=== PATIENT | female | born 1970 | race Caucasian/White ===

== ENCOUNTER → 2017-11-27 | Outpatient (REF) | payer BC ==
[~2017-11-27] MED LIST: CYC10 PO; META800T18 PO; OXYC-865 PO; PER PO; SIMV10TA98 PO; VENL50TA22 PO
== END ==
LOC: ZZSENDIN 18:37
PROVIDERS: ATTEND Urology
DX: N39.0 Urinary tract infection, site not specified (principal); R82.79 Other abnormal findings on microbiological examination of urine
CPT/HCPCS: 87088

== ENCOUNTER → 2017-12-12 | Outpatient (CLI) | payer BC ==
[~2017-12-12] MED LIST changes: +ATOR10TA24 PO; +NORG1TAB74 PO; +VENL75TA98 PO
== END ==
LOC: LAB 16:11
PROVIDERS: ATTEND Obstetrics & Gynecology
DX: N92.6 Irregular menstruation, unspecified (principal)
CPT/HCPCS: 88305

== ENCOUNTER 2018-01-10 03:27 | Day surgery (SDC) | payer BC ==
[~2018-01-10] VITALS: Ht 170.2 cm; Wt 93.9 kg
[~2018-01-10 03:27] MED LIST changes: +CHOL10005 PO; +[UNRECOGNIZED DRUG - CODE] PO
[2018-01-10] MEDS ORDERED: fentaNYL CITR 100 MCG/2 ML AMP ONE (07:35)
[2018-01-10] MEDS ORDERED: LIDOCAINE 2% IV 100 MG/5ML SYR ONE (07:37)
[2018-01-10] MEDS ORDERED: PROPOFOL EMUL(*) 10MG/ML 20 ML 20 ML ONE (07:37)
[2018-01-10 07:41] LABS: PLATELET COUNT, AUTOMATED 345 K/uL (150-450)
[2018-01-10 07:48] VITALS: BP 136/75
[2018-01-10] MEDS ORDERED: ceFAZolin(*) 1 GM VIAL 1 GM in NS(*) 0.9% 100 ML ADDVANT BAG 100 ML IVPB ONE (07:50)
[2018-01-10] MEDS ORDERED: LIDOCAINE/SOD BICARB 8.4% SYR ID ONE (07:50)
[2018-01-10] MEDS ORDERED: NORMOSOL R SOLN(*) 1000 ML BAG 1,000 ML IV PRN (07:50)
[2018-01-10] MEDS ORDERED: MIDAZOLAM 2 MG/2 ML VIAL IVP PRN (07:50)
[2018-01-10] MEDS ORDERED: FAMOTIDINE 20 MG TAB PO ONE (07:50)
[2018-01-10] MEDS ORDERED: ONDANSETRON 4 MG/2 ML VIAL ONE (08:48)
[2018-01-10] MEDS ORDERED: KETOROLAC 30 MG/ML VIAL ONE (08:48)
[2018-01-10] MEDS ORDERED: DEXAMETHASONE SOD 4 MG/ML VIAL ONE (08:48)
[2018-01-10] MEDS ORDERED: LR(*) 1000 ML BAG 1,000 ML IV ONE (09:17)
[2018-01-10] MEDS ORDERED: IBUP800T37 PO (09:18)
[2018-01-10] MEDS ORDERED: LOR5/325 PO (09:18)
[2018-01-10] MEDS ORDERED: METOCLOPRAMIDE 10 MG/2 ML SDV IVP PRN (09:20)
--- NOTE | 2018-01-10 09:20 | Short(Outpt) Discharge Summary ---
Discharge Summary Reason for Hosp/Final Diag: (1) Status post endometrial ablation Departure Discharge to: Home, Self Care Discharge Instructions Home Meds Active Scripts Hydrocodone Bit/Acetaminophen (HYDROCODON-ACETAMINOPHEN 5-325) 1 Each Tablet, 1 EACH PO Q4-6H PRN for pain, #10 TAB 0 Refills Prov:HUMBERTO JOHNSON MD 01/10/18 Reported Medications Ferrous Sulfate (FERROUSUL) 325 Mg Tablet, 65 MG PO BID 12/27/17 Cholecalciferol (Vitamin D3) (VITAMIN D3) 1,000 Unit Tablet, 1000 UNIT PO DAILY, TAB 12/27/17 Norgestimate-Ethinyl Estradiol (SPRINTEC) 1 Each Tablet, 1 TAB PO QDAY 12/02/17 Atorvastatin Calcium (LIPITOR) 10 Mg Tablet, 1 TAB PO QDAY, TAB 12/02/17 Venlafaxine Hcl (VENLAFAXINE HCL ER) 75 Mg Tab.er.24, 1 TAB PO QDAY 12/02/17 Follow up 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
--- NOTE | 2018-01-10 09:36 | Post Operative Note ---
Operative Note - [employer] Operative Day Date: Jan 10, 2018 Time: 09:35 Physicians Surgeon: Lenka Anesthesia: General, Epstein Diagnosis Pre-Op Diagnosis: Endometrial lesion Menorrhagia Post-Op Diagnosis: Submucosal fibroid Menorrhagia Procedure Findings: Submucosal fibroid in right fundal aspect of endometrium Procedure(s): Hscope myomectomy NovaSure ablation Specimen Removed:(Maybe N/A): Endometrial fibroid and curettings Complications: None Fluids Fluids: IVF: 600cc UOP: 10cc Estimated Blood Loss: Minimal HUMBERTO JOHNSON MD Jan 10, 2018 09:36
--- NOTE | 2018-01-10 10:17 | OPERATIVE REPORT 1 ---
EVENT DATE: January 10, 2018 SURGEON: Bharti Og MD ANESTHESIOLOGIST: Daryl Epstein M.D. ANESTHESIA: General. PREOPERATIVE DIAGNOSIS 1. Endometrial lesion. 2. Menorrhagia. POSTOPERATIVE DIAGNOSIS 1. Submucosal fibroid. 2. Menorrhagia. FINDINGS A small submucosal fibroid in the right fundal aspect of the endometrium. PROCEDURE PERFORMED 1. Hysteroscopic myomectomy. 2. NovaSure endometrial ablation. SPECIMENS Endometrial fibroid and curettings. COMPLICATIONS None. IV FLUIDS 600 cc. URINE OUTPUT 10 cc. ESTIMATED BLOOD LOSS Minimal. INDICATIONS FOR PROCEDURE This patient is a 47-year-old, G2, P2 who presents initially with heavy and irregular bleeding. She was started on Sprintec, which did help her heavy bleeding somewhat but she continued to have irregular and heavy bleeding. She had a pelvic MRI, which showed a 1 cm lesion at the top of endometrium. This was confirmed with ultrasound. She had an endometrial biopsy, which was benign. After discussing her options, she did elect to proceed with hysteroscopic removal of this uterine endometrial lesion as well as NovaSure endometrial ablation. She is, therefore, admitted for the above said procedure. DESCRIPTION OF PROCEDURE The patient is properly identified and taken to the operating room. She is placed under general anesthesia and then placed in the dorsal lithotomy position and prepped and draped in the usual fashion for a vaginal procedure. SCDs were on and running. She did receive Ancef preoperatively for prophylactic antibiotics. Her bladder was drained of 10 cc of clear yellow urine. A speculum was then placed to visualize the cervix, which was noted to be multiparous and without lesion. The anterior lip was grasped with an Allis clamp, placed on traction and then os finder was utilized to enter the endometrial cavity. The cervix was serially dilated to 5 mm with Salina dilators without difficulty. A diagnostic hysteroscope was then introduced under direct visualization. The small submucosal fibroid was visualized at the right fundal aspect of the endometrium. Otherwise, there was abundant endometrial tissue but nothing concerning in appearance. The MyoSure LITE device was then assembled and introduced under direct visualization. This device was then utilized to perform a myomectomy without difficulty followed by curettings of the entire endometrial cavity until the cavity was clear. Once this was achieved, the hysteroscope was removed and a NovaSure endometrial ablation device was assembled. The uterine cavity length was measured to be 7 cm. Therefore, the NovaSure device was set to a cavity length of 6.5+. The device was then introduced within the endometrial cavity and the array was deployed with manipulation. The cavity length was 3.1 cm. These measurements were placed into the machine and the power was calculated. Cavity assessment was then performed and passed. Once this was achieved, the radiofrequency ablation was initiated and a total burn time of 99 seconds was achieved. At the end of this, the array was retracted and removed from the uterus. The hysteroscope was again introduced under direct visualization and adequate burn throughout the entire endometrium was noted. There was a very small amount of normal appearing tissue at the left tubal ostial insertion site but otherwise it was an adequate burn. The hysteroscope was then removed as well as the Allis clamp. There was no bleeding of the cervix at that time and the speculum was removed. The patient tolerated the procedure well and recovered in the Post-Anesthesia Care Unit [facility]
[2018-01-10 10:23] VITALS: BP 113/64
[2018-01-10 10:42] VITALS: BP 115/67
[2018-01-10] MEDS ORDERED: ACETAMINOPHEN 500 MG TAB PO ONE (11:00)
[2018-01-10 11:13] VITALS: BP 128/74
[2018-01-10 11:14] VITALS: BP 139/69
[2018-01-10] MEDS ORDERED: IBUPROFEN 800 MG TAB PO SCH (17:00)
== END 2018-01-10 10:24 | disposition home or self-care (01) ==
LOC: OR 03:27
PROVIDERS: ATTEND Obstetrics & Gynecology
DX: D25.9 Leiomyoma of uterus, unspecified (principal); N92.0 Excessive and frequent menstruation with regular cycle
CPT/HCPCS: 36415; 58561; 58563; 84703; 85025; 88305; J0690; J1100; J1885; J2001; J2405; J2704; J3010; J7050; 82310; 82374; 82435; 82565; 82947; 84132; 84295; 84520

== ENCOUNTER → 2018-06-24 | Outpatient (CLI) | payer BC ==
[~2018-06-24] MED LIST changes: +IBUP800T37 PO; +LOR5/325 PO
== END ==
LOC: LAB 15:51
PROVIDERS: ATTEND Obstetrics & Gynecology
DX: R39.15 Urgency of urination (principal); R82.79 Other abnormal findings on microbiological examination of urine
CPT/HCPCS: 87088

== ENCOUNTER → 2018-10-24 | Outpatient (CLI) | payer BC ==
[~2018-10-24] MED LIST changes: +IOPAMIDOL 76% 100 ML INFUS BTL 100 ML ONE
--- NOTE | 2018-10-24 16:22 | RADIOLOGY IMAGING REPORT ---
FACILITY: [facility] [place] PATIENT NAME: Ritu Boogie : 1970 MR: [id number] V: [id number] EXAM DATE: ORDERING PHYSICIAN: HUMBERTO JOHNSON TECHNOLOGIST: Location: [facility] Patient: Ritu Boogie : 1970 Visit/Account:[id number] Date of Sevice: 10/24/2018 CT ABDOMEN PELVIS W/ CON History: 48-year-old female with abdominal pain, nausea and vomiting. Evaluate abdomen. Technique: CT images were obtained through the abdomen and pelvis with intravenous contrast using: I sovue-370 75 mls. Coronal and sagittal reformations were then created. One of the following dose optimization techniques was utilized in the performance of this exam: Autom ated exposure control; adjustment of the mA and/or kV according to the patient's size; or use of an i terative reconstruction technique. Specific details can be referenced in the facility's radiology C T exam operational policy. Comparison study: MRI scan of the pelvis from April 05, 2017. Findings: Lung bases: There is no abnormality other lung base. There is a small hiatal hernia. Liver: There is no finding of focal lesion in the liver to suggest metastatic disease.There is no hep atic or portal vein thrombosis. Biliary: The gallbladder surgically absent and there are surgical clips in the gallbladder fossa. Spleen: Spleen is unremarkable.. Adrenals: Negative Pancreas: Negative. Kidneys/genitourinary/retroperitoneum: No findings of a solid or cystic mass. No findings of hydronep hrosis or nephrolithiasis. Bowel/peritoneum/mesentery: Negative. Pelvic/genital urinary: The bladder is unremarkable. The uterus is within normal limits. The right ovary is not well seen but there appear to be small follicular cysts in the right adnexa. The left o vary has a small amount of fluid and a couple of enhancing cyst. A ruptured corpus luteal cyst canno t be excluded. Vessels: Negative. Lymph node: Negative. Body wall/bones: Is a small periumbilical hernia containing adipose tissue. Peritoneal cavity: No findings of ascites or pneumoperitoneum. IMPRESSION: 1. In this patient with lower abdominal pain there are areas of curvilinear enhancement in the left ovary and there is a small amount of fluid in the cul-de-sac. The possibility of a ruptured corpus l uteal cyst is raised. The right ovary appears normal. 2. Status post cholecystectomy. 3. Normal appendix. 4. Small periumbilical hernia containing only adipose tissue. Report Dictated By: Tavo Cavanaugh MD at 10/24/2018 4:10 PM Report E-Signed By: Tavo Cavanaugh MD at 10/24/2018 4:17 PM WSN:[email or web address]
== END ==
LOC: CT 12:55
PROVIDERS: ATTEND Nurse Practitioner Family
DX: R10.9 Unspecified abdominal pain (principal); Z90.49 Acquired absence of other specified parts of digestive tract
CPT/HCPCS: 74177; Q9967

== ENCOUNTER 2018-11-21 01:05 | Day surgery (SDC) | payer BC ==
[~2018-11-21] VITALS: Ht 167.6 cm; Wt 90.3 kg
[2018-11-21] VITALS (8 sets, daily range): BP systolic 95–114; BP diastolic 52–93
[~2018-11-21 01:05] MED LIST changes: -IOPAMIDOL 76% 100 ML INFUS BTL 100 ML ONE
[2018-11-21] MEDS ORDERED: PROPOFOL EMUL(*) 10MG/ML 20 ML 20 ML ONE ×2 (07:13→10:11)
--- NOTE | 2018-11-21 10:44 | Short(Outpt) Discharge Summary ---
Discharge Summary Reason for Hosp/Final Diag: (1) Abdominal pain Hospital Course & Plan: pt presented for egd and colonoscopy. she tolerated the procedures well and will be discharged home when criteria met. Discharge Instructions Home Meds Reported Medications Ferrous Sulfate (FERROUSUL) 325 Mg Tablet, 65 MG PO BID 12/27/17 Cholecalciferol (Vitamin D3) (VITAMIN D3) 1,000 Unit Tablet, 1000 UNIT PO DAILY, TAB 12/27/17 Atorvastatin Calcium (LIPITOR) 10 Mg Tablet, 1 TAB PO QDAY, TAB 12/02/17 Venlafaxine Hcl (VENLAFAXINE HCL ER) 75 Mg Tab.er.24, 1 TAB PO QDAY 12/02/17 Diet: Regular Activity: As Tolerated Special Instructions: we will call you in 10 days with biopsy results. JEFFERY MUNIZ Nov 21, 2018 10:44
--- NOTE | 2018-11-21 11:08 | OPERATIVE REPORT 1 ---
EVENT DATE: November 21, 2018 SURGEON: Jon Driver MD ANESTHESIOLOGIST: Daryl Epstein MD ANESTHESIA: MAC. BLAST SETTER: None. PREOPERATIVE DIAGNOSIS Abdominal pain, diarrhea and vomiting. POSTOPERATIVE DIAGNOSES 1. Abdominal pain, diarrhea and vomiting. 2. Gastritis. 3. Small hiatal hernia. 4. Rectal polyp. PROCEDURES PERFORMED 1. Esophagogastroduodenoscopy with biopsies. 2. Colonoscopy with snare polypectomy and biopsies. FLUIDS IV crystalloid. ESTIMATED BLOOD LOSS Minimal. SPECIMENS 1. Biopsies from first portion of duodenum, antrum and GE junction. 2. Rectal polyp. 3. Random colon biopsies. COMPLICATIONS None. INDICATIONS This is a 48-year old female with abdominal pain. She has also had vomiting and diarrhea recently but this has improved. On physical exam, patient's abdomen is soft. She is stable. Risks and benefits of the procedure were explained and consent was signed. DESCRIPTION OF PROCEDURE Patient was taken to the GI suite and placed in the supine position. MAC anesthesia was administered per Anesthesia team. A bite-block was placed and the patient was placed in the left lateral position. Gastroscope was advanced through the oropharynx, down the esophagus and into the stomach. It was retroflexed. There was a small hiatal hernia. The entire stomach had mild gastritis. There was no bleeding. The scope was advanced into the first and second portions of the duodenum, which were within normal limits. Biopsies were taken from the first portion of the duodenum as well as the antrum for histology and H. pylori and the GE junction. The Z-line was regular. The scope was withdrawn through the esophagus and the esophagus was within normal limits. The scope was withdrawn. The patient tolerated this portion of the procedure well. Our attention was then turned to the colonoscopy. A perianal exam and digital rectal exam were unremarkable. The colonoscope was then advanced through the anus to the cecum under direct vision. Prep was adequate to identify polyps greater than 6 mm in size. The cecum was identified by the ileocecal valve and the appendical orifice. Colonoscope was slowly withdrawn, evaluating the mucosa along the entire length of the colon. Random biopsies were taken due to the patient's recent diarrhea. In the rectum, a 4 mm sessile polyp was found and was completely removed and retrieved with a snare. Carbon dioxide was suctioned and the colonoscope was withdrawn. The patient tolerated the procedure well. There were no complications. [facility]
--- NOTE | 2018-11-21 11:19 | NUR ---
1047 Report given to this RN by Yen Blackburn RN. 1048 Pt opened eyes and stated she needed to use the restroom. Pt given bedpan after recording orthostatic BP. x1 void 1100 VS
[2018-11-21] MEDS ORDERED: NORMOSOL R SOLN(*) 1000 ML BAG 1,000 ML IV PRN (12:00)
[2018-11-21] MEDS ORDERED: LIDOCAINE/SOD BICARB 8.4% SYR ID ONE (12:00)
== END 2018-11-21 11:57 | disposition home or self-care (01) ==
LOC: OR 01:05
PROVIDERS: ATTEND Surgery
DX: D12.8 Benign neoplasm of rectum (principal); K29.70 Gastritis, unspecified, without bleeding; K44.9 Diaphragmatic hernia without obstruction or gangrene
CPT/HCPCS: 00813; 43239; 45380; 45385; 87077; 88305; 88313; 88342; J2704

== ENCOUNTER → 2018-11-26 | Outpatient (CLI) | payer BC ==
--- NOTE | 2018-11-26 11:13 | RADIOLOGY IMAGING REPORT ---
FACILITY: [facility] PATIENT NAME: Ritu Boogie : 1970 MR: [id number] V: [id number] EXAM DATE: ORDERING PHYSICIAN: JACKIE COSTELLO TECHNOLOGIST: Location: [facility] Patient: Ritu Boogie : 1970 Visit/Account:[id number] Date of Sevice: 11/26/2018 DEXA Scan Clinical history: Osteoporosis screening. Comparison: None. LUMBAR SPINE: Bone mineral density (BMD) measured in the lumbar spine correlates with a T-score of -0.4 and a Z-sco re of -0.8 which is normal as defined by the World Health Organization. The corresponding risk of f racture in the lumbar spine is not increased compared with a young adult reference population. Note that degenerative changes may falsely increase bone density. LEFT FEMORAL NECK: Bone mineral density (BMD) measured in the femoral neck region correlates with a T-score of -0.1 and a Z-score of 0.1 which is normal as defined by the World Health Organization. Bone mineral density (BMD) measured in the femoral neck is 1.019 g/cm2. LEFT TOTAL HIP: Total hip bone mineral density (BMD) correlates with a T-score of 0.4 and a Z-score of 0.3 which is n ormal as defined by the World Health Organization. The corresponding risk of fracture in the hip is not increased compared with a young adult reference population. IMPRESSION: 1. Lumbar spine: Normal bone density. 2. Left femoral neck: Normal bone density. 3. Left femoral neck: Bone Mineral Density is 1.019 g/cm2. 4. Left total hip: Normal bone density. FRAX WHO Fracture Risk Assessment Tool link: <http://www.shef.ac.uk/FRAX/tool.jsp?locationValue=9> PLEASE NOTE: 1) The World Health Organization defines low BMD as follows: T-score Normal > -1 Osteopenia < -1 and > -2.5 Osteoporosis < -2.5 without fractures Established osteoporosis < -2.5 with fractures 2) In general, you may wish to consider: Diagnosis Treatment Follow-up DEXA Normal BMD Prevention 2-3 years Osteopenia Prevention/therapy 1-2 years Osteoporosis Therapy Yearly 3) Fracture risk estimated from the T-score is more accurate for vertebral fractures (often spontane ous) than for hip fractures. Report Dictated By: Tanner Ellis MD at 11/26/2018 11:05 AM Report E-Signed By: Tanner Ellis MD at 11/26/2018 11:06 AM WSN:[email or web address]
--- NOTE | 2018-12-02 10:05 | RADIOLOGY IMAGING REPORT ---
FACILITY: [facility] PATIENT NAME: JACKIE OG : [id number] MR: [id number] V: [id number] EXAM DATE: ORDERING PHYSICIAN: JACKIE COSTELLO TECHNOLOGIST: Aarti Winter PROCEDURE:BILATERAL DIAGNOSTIC DIGITAL MAMMOGRAM WITH CAD ASSISTED INTERPRETATION & 3D TOMOSYNTHESIS. REASON FOR STUDY: Positive family history. COMPARISON STUDIES: Priors. VIEWS OBTAINED: 2D & 3D full field CC & MLO projections. BREAST DENSITY: Scattered fibroglandular densities are present in both breasts. MAMMOGRAM FINDINGS: No masses or suspicious calcifications. DIAGNOSTIC CATEGORY 1--NEGATIVE. RECOMMENDATIONS: ROUTINE MAMMOGRAM AND CLINICAL EVALUATION IN 1YR. IMPRESSION: BIRADS 1: Negative. Dictated by: Tanner Ellis M.D. on 11/26/2018 at 13:20 Transcribed by: LUCA on 11/26/2018 at 14:25 Approved by: Shayy Reynoso M.D. on 12/02/2018 at 10:00 [facility]
== END ==
LOC: MAMO 00:28
PROVIDERS: ATTEND Nurse Practitioner Family
DX: Z13.820 Encounter for screening for osteoporosis (principal); N60.19 Diffuse cystic mastopathy of unspecified breast; Z80.3 Family history of malignant neoplasm of breast
CPT/HCPCS: 77062; 77066; 77080